=== PATIENT | female | born 1950 | race Caucasian/White ===

== ENCOUNTER → 2017-06-09 | Outpatient (CLI) | payer OTHER ==
[~2017-06-09] MED LIST: ATORVASTATIN CA10 MG; PERCOCET 5/3251 TAB PO
== END | disposition home or self-care (01) ==
LOC: PPH VACUNA 10:45
DX: Z23 Encounter for immunization (principal)
CPT/HCPCS: 90674; G0008

== ENCOUNTER 2020-12-04 10:22 | Outpatient (CLI) | payer OTHER | END 2020-12-04 11:00 | disposition home or self-care (01) | LOC: ASH CLINIC 10:22 | PROVIDERS: ATTEND Emergency Medicine | DX: Z23 Encounter for immunization (principal); U07.1 COVID-19 ==